=== PATIENT | female | born 1950 | race Caucasian/White ===

== ENCOUNTER 2024-05-05 13:18 | Inpatient (IN) | payer OTHER, SELFPAY ==
[2024-05-04 21:59] VITALS: BP 134/100
[2024-05-04 22:30] LABS: % Basophils 0.9 % (0-2); % Eosinophils 1.8 % (0-6); % Immature Granulocytes 0.3 % (0-0.5); % Lymphocytes 32.6 % (20.5-51.1); % Monocytes 7.1 % (1.7-9.3); % Neutrophils 57.3 % (42.2-75.2); Absolute Basophils 0.1 10^3/uL (0-0.2); Absolute Eosinophils 0.2 10^3/uL (0-0.7); Absolute Lymphocytes 3.2 10^3/uL (1.2-3.4); Absolute Monocytes 0.7 10^3/uL (0.1-0.6); Absolute Neutrophils 5.7 10^3/uL (1.4-6.5); Hematocrit 40.5 % (37.0-47.0); Hemoglobin 13.2 g/dL (12.0-16.0); Mean Corp Hgb Conc. 32.6 g/dL (33.0-37.0); Mean Corpuscular Hgb 28.6 pg (27.0-31.0); Mean Corpuscular Volume 87.9 fL (81.0-99.0); Mean Platelet Volume 9.8 fL (7.4-10.4); Nucleated Red Blood Cells % 0 %; Platelet Count 283 10^3/uL (130-400); Red Blood Cell Count 4.61 10^6/uL (4.20-5.40); Red Cell Dist. Width 13.1 % (11.5-14.5); White Blood Cell Count 9.9 10^3/uL (4.8-10.8)
[2024-05-04 22:30] LABS: Glucose - Point of Care 111 mg/dl (70-99)
[2024-05-04 22:32] VITALS: BP 180/82
[2024-05-04 22:43] LABS: INR 0.96; PT 13.1 Sec (11.4-14.6)
[2024-05-04 22:44] LABS: APTT 29.1 Sec (23.4-35.0)
[2024-05-04 22:45] LABS: ALT (SGPT) 28 U/L (0-35); AST (SGOT) 25 U/L (14-36); Albumin 4.5 g/dl (3.5-5.0); Alkaline Phosphatase 113 U/L (38-126); Blood Urea Nitrogen 16 mg/dl (7-17); Calcium 9.6 mg/dl (8.4-10.2); Carbon Dioxide 25 mmol/L (22-30); Chloride 105 mmol/L (98-107); Glucose 120 mg/dl (70-99); Sodium 139 mmol/L (135-145); Total Bilirubin 0.7 mg/dl (0.2-1.3); Total Protein 6.7 g/dl (6.3-8.2); eGFR 53.72
[2024-05-04 23:00] VITALS: BP 179/71
--- NOTE | 2024-05-04 23:01 | ED.CVA ---
History of Present Illness
General
Chief Complaint: CVA/TIA Symptoms
Time Seen by Provider: 05/04/24 22:17
Onset of Stroke Symptoms
Onset of symptoms known: Yes
Date of onset of symptoms: 05/04/24
Time of onset of symptoms: 21:30
History of Present Illness
History of Present Illness:
73-year-old female with history of hypertension and hyperlipidemia presents to the emergency department for evaluation of left arm tingling and weakness beginning at 2130. She states she stood up from the couch and abruptly felt numbness to the
left arm. She attempted to drink water i and her son states that she was unable to keep it in her mouth. She also felt clumsy with the arm as if she would drop the glass. Has never had similar symptoms. At this time the paresthesias remain, she
also reports paresthesias to the entire face, nonfocal. No reported speech difficulty, vision changes, chest pain, or shortness of breath. She did take 2 full dose aspirins prior to arrival in the ER tonight
Review of Systems
Review of Systems
Allergies reviewed?: Yes
All Other Systems: ROS reviewed and negative except as documented in HPI and ROS
Phy Exam
Physical Exam
Physical Exam:
GEN: Well appearing, NAD, WDWN
HEENT: Oral mucosa moist, no scleral icterus, no nasal congestion
Cardiac: Mildly tachycardic, regular
Lung: No respiratory distress, no tachypnea
MSK: No gross deformity or injuries
Skin: Good color, no pallor or jaundice, no rashes
Neuro: AO x3; CN II-XII grossly intact. BUE strength 5/5 in all venegas, sensation intact and symmetric. BLE strength 5/5 in all venegas, sensation intact and symmetric. Mild ataxia to the left upper extremity, otherwise no limb ataxia to the right
upper or bilateral lower extremities. Normal visual venegas bilaterally by confrontation
Psych: Calm, cooperative
Scores
NIH Stroke Score
Level of Consciousness: 0 - Alert
LOC Questions: 0-Answers both correctly
LOC Commands: 0-Performs both correctly
Best Horizontal Gaze: 0-Normal
Visual Venegas: 0=Normal, no visual loss
Facial Palsy: 1=Minor paralysis
Motor - Right Arm: 0=No drift 10 seconds
Motor - Left Arm: 0=No drift 10 seconds
Motor - Right Le-No drift 5 seconds
Motor - Left Le-No drift 5 seconds
Limb Ataxia: 1-Present in one limb
Sensation: 0-Normal
Best Language: 0-No aphasia
Dysarthria: 0-Normal
Extinction and Inattention: 0-No abnormality
Total Score:: 2
Course
Orders/Labs/Results
Orders:
Orders
05/04/24 22:18
Electrocardiogram (*1) Urgent
Reason for Study: Fatigue / Weakness
EKG- Treatment ONCE
05/04/24 22:23
Complete Blood Count/With Diff Urgent
Comprehensive Metabolic Panel Urgent
PTT Urgent
Prothrombin Time Urgent
05/04/24 22:31
CT HEAD STROKE ALERT W/o Cont Urgent
Comment:
Reason For Exam: stroke
CT HEAD/NECK ANG STROKE ALERT Urgent
Comment:
Reason For Exam: stroke
05/04/24 23:05
Clopidogrel Bisulfate [Plavix] 300 mg PO NOW STA
05/04/24 23:50
Admit/Transfer Patient As Directed
Co-Sign Provider:
Level of Care: Observation services
Assign to:: Telemetry
Physician / Group: Josemanuel Osman
Diagnosis: CVA/TIA
Reason for Telemetry: CVA/TIA
Date to Stop Telemetry: 05/07/24
Time to Stop Telemetry: 11:00
05/04/24 23:51
Code Status As Directed
Resuscitation Status: Full Code
PRN Pain Medication Management As Directed
May give lesser potent ordered pain med per pt: Yes
preference::
Protocol:: Medication orders for pain may be administered in a
manner that supports deferring to patient preference
when the pt is:
- Requesting an ordered lesser potent pain medication.
Least to most potent pain medications are defined
as: acetaminophen < NSAID < tramadol < opioids
(morphine, oxycodone, hydromorphone).
- Requesting a lesser dose of the same medication IF
ORDERED.
- Requesting a less intrusive route of administration
if both routes are prescribed by the provider (PO <
IV).
05/07/24 11:00
DC Protocol for Telemetry ONCE
Abnormal Lab Results
05/04/24 05/04/24
22:23 22:28
MCHC 32.6 L g/dL
(33.0-37.0)
Absolute Monos (auto) 0.7 H 10^3/uL
(0.1-0.6)
Creatinine 1.1 H mg/dL
(0.6-1.0)
Glucose 120 H mg/dl
(70-99)
POC Glucose 111 H mg/dl
(70-99)
05/04/24 22:23
05/04/24 22:23
Vital Signs
Initial and Last Documented VS:
Initial Vital Signs
Temp Pulse Resp BP Pulse Ox
98.2 F 116 20 134/100 98
05/04/24 21:59 05/04/24 21:59 05/04/24 21:59 05/04/24 21:59 05/04/24 21:59
Last Documented Vital Signs
Temp Pulse Resp BP Pulse Ox
98.2 F 100 22 178/65 96
05/04/24 21:59 05/04/24 23:45 05/04/24 23:45 05/04/24 23:32 05/04/24 23:45
MDM/Problems Addressed
MDM/Problems Addressed:
Patient says shortly after arrival in the emergency department and stroke alert was called. Initial NIH of 2 for mild left nasolabial fold droop and L limb ataxia, no sensory level deficits, no pronator drift, no dysarthria or aphasia. Discussed
risk and benefits of thrombolytic therapy with the patient and her son, at this time there is no indication for thrombolytic therapy given low NIH and nondisabling exam. Case was then discussed by telephone with neurology who agree with assessment
and recommend dual antiplatelet load; will give Plavix here as the patient administered a supratherapeutic dose of aspirin at home. Per vision radiology read CT of the head and CT angiogram of the head and neck were grossly unremarkable. Will
admit to the hospitalist service
*Critical Care Note
Total Time (30-74mins, 75-104mins- exclusive of procedures): 45 minutes
comment:
Critical care time: 45 minutes
Critical care time was exclusive of: Separately billable procedures, treating other patients, and teaching time
Critical care was necessary to treat or prevent imminent or life-threatening deterioration of the following conditions: Acute stroke
Critical care time spent personally by me on the following activities:
[x] Review of old charts
[x] Obtaining history from patient or surrogate
[x] Ordering and review of the laboratory studies
[x] Ordering and review of radiographic studies
[x] Ordering and performing treatments and interventions
[x] Patient patient's response to treatment
[x] Development of treatment plan with patient or surrogate
ED Attending Note
-
Portions of this chart may have been created with voice recognition software.� Occasional wrong word or��sound alike� substitutions may have occurred due to the inherent limitations of voice recognition software.
Discharge Plan
Departure
Patient Disposition: Admit
Date of Disposition: 05/04/24
Time of Disposition: 23:08
Admit to: Med/Surg
Presentation/result/management discussed w/ accepting MD/DO: Hospitalist
Discharge Problem:
Stroke
Prescriptions:
No Action
atorvastatin 10 mg Tablet
10 mg PO DAILY
losartan 100 mg Tablet
100 mg PO DAILY
Interventions
Interventions:
ED- Pulmonary Assessment Last Done: 05/04/24 22:30
ED- Neurological Assessment Last Done: 05/04/24 22:30
ED- Cardiac Assessment Last Done: 05/04/24 22:30
Discharge Date and Time
Print Language: FAROESE
--- NOTE | 2024-05-04 23:16 | HPS.HSE ---
Addendum entered and electronically signed by Josemanuel Osman DO 05/05/24 01:04:
Patient seen and examined independently. Agree with findings and plan as set forth by RUPESH Perdomo.
Patient is a 73y F with PMH significant for hypertension who presents to ED complaining of L arm tingling, facial tingling and weakness. Patient states that symptoms started around 9:30 this evening. She reached for a water bottle and was
unable to grasp it. She attempted to drink and the water spilled down her face. Patient denies any headache, vision changes, etc. She denies any prior history of similar symptoms.
In the ED, patient was appreciated to have some LUE ataxia and weakness that has continued to improve since arrival.
Ass:
CVA / TIA
Benign Hypertension
Plan:
Observe overnight for further evaluation and treatment.
DAPT for now.
MRI in AM.
Neuro evaluation in the AM.
Follow for neuro changes.
PT / OT / Speech evaluations.
Check lipids, A1C, etc.
Continue usual losartan for now with holding parameters.
Original Note:
Family Physician
-
Family Physician: Ricky Potter
Chief Complaint
-
CVA/TIA symptoms
History of Present Illness
Patient is a 73-year-old female with past medical history significant for hypertension and hyperlipidemia who presented to [facility] ED for evaluation of left arm tingling and weakness that started around 2129. Patient reports she stood up
from sitting and abruptly felt numbness in her left arm. Patient states after standing and feeling the numbness she attempted to take a drink of water from a bottle and feels her dexterity was off, she had a hard time holding bottle and when she
took a sip of water it began to run out of her mouth. She denies any symptoms like this before. She denies any vision changes, weakness in leg, difficulty talking or dizziness. Patient denies any recent sickness, fevers, chills, chest pain,
shortness of breath, cough, nausea, vomiting, constipation, diarrhea or urinary symptoms.
Medical History
Past Medical History
Past Medical History: Reports Other
Additional Past Medical History:
benign hypertension
hyperlipidemia
Past Surgical History: Reports Other
Additional Past Surgical History:
hysterectomy (1975)
Social History
Tobacco: Former Smoker (quit years ago)
Alcohol: None
Drug: None
Living: With Family
Employment: Employed
Family History
Family History: Not pertinent
Allergies / Home Medications
Allergies reflects when Allergies were last updated in [facility].
Home Medications with original date entered in [facility]
Allergy/Medication List:
Allergies
Allergy/AdvReac Type Severity Reaction Status Date / Time
No Known Allergies Allergy Unverified 05/04/24 22:00
Home Medications
atorvastatin 10 mg tablet 10 mg PO DAILY 05/04/24
losartan 100 mg tablet 100 mg PO DAILY 05/04/24
Review of Systems
-
History Source: Patient
Constitutional: Reports No Symptoms
EENT: Reports No Symptoms
Respiratory: Reports No Symptoms
Cardiac: Reports No Symptoms
Abdomen/GI: Reports No Symptoms
: Reports No Symptoms
Musculoskeletal: Reports No Symptoms
Skin: Reports No Symptoms
Neurological: Reports Weakness (left arm ) and Numbness (left arm )
Endocrine: Reports No Symptoms
Hematologic/Lymphatic: Reports No Symptoms
Psych: Reports No Symptoms
Physical Exam
Vital Signs
Vital Signs
Temp Pulse Resp BP Pulse Ox
98.2 F 104 22 179/71 97
05/04/24 21:59 05/04/24 23:00 05/04/24 23:00 05/04/24 23:00 05/04/24 23:00
Physical Exam
General: Well Developed, Well Nourished, No Apparent Distress, Comfortable, Conversant and Morbidly Obese
HEENT: NormoCephalic, Moist mucous membranes, Atraumatic, [place] Conjunctivae, Nose Appears Normal and Ears Appear Normal
Respiratory: Clear and Non Labored Respirations
Cardiac: S1/S2 and Regular Rhythm; No Murmur, Rub or Gallop
Breast: Deferred by me
GI: Soft, Non Tender, Non Distended and Normal Bowel Sounds; No Organomegaly
Rectal: Deferred by Provider
Genito-urinary: Deferred by me
Musculoskeletal: No Clubbing, No Cyanosis and No Edema
Skin: Warm and IV/Catheter Site; No Rash
Neuro: Awake, Alert, AO x 3, Nonfocal/grossly intact and No Sensory Deficits; No Slurred Speech or Facial Droop
Psych: Calm and Intact Judgment/Insight
Laboratory Results
-
05/04/24 22:
05/04/24:
Laboratory Results
PT 13.1 Sec (11.4-14.6) 05/04/24:
INR 0.96 05/04/24:
APTT 29.1 Sec (23.4-35.0) 05/04/24:
Total Bilirubin 0.7 mg/dl (0.2-1.3) 05/04/24 22:
AST 25 U/L (14-36) 05/04/24:
ALT 28 U/L (0-35) 05/04/24 22:23
Alkaline Phosphatase 113 U/L (38-126) 05/04/24 22:23
Data Reviewed
-
CT Scan: Report Reviewed by me (Head CT: No acute intracranial abnormality)
Medical Tests (Nuc Med, Echo, EKG etc): Report Reviewed by me (EKG: NORMAL SINUS RHYTHM POSSIBLE LEFT ATRIAL ENLARGEMENT NONSPECIFIC ST AND T WAVE ABNORMALITY)
Lab Data: Labs Reviewed by me
Impression/Plan
-
IMPRESSION/PLAN:
#TIA/CVA symptoms
left arm numbness and weakness abrupt onset at approximately 2130
EKG: NORMAL SINUS RHYTHM
POSSIBLE LEFT ATRIAL ENLARGEMENT
NONSPECIFIC ST AND T WAVE ABNORMALITY
Head CT: No acute intracranial abnormality
- Admit to telemetry
- Consult Neurology
- DAPT
- start Plavix and aspirin
#benign hypertension
- continue losartan
#hyperlipidemia
- continue atorvastatin
Code status: full code
DVT prophylaxis: SCDs
[2024-05-04 23:31] VITALS: BP 189/70
[2024-05-04 23:32] VITALS: BP 178/65
[2024-05-04] MEDS: PLAVIX 300 MG PO (23:36)
[2024-05-05] VITALS (10 sets, daily range): BP systolic 141–200; BP diastolic 63–112; BMI 40.5; BMI 39.5
--- NOTE | 2024-05-05 04:00 | PTCARENOTE ---
pt arrived from ED via stretcher and walked independently to bed. pt is AAOx3, VSS except BP was 181/112 upon arrival. CLINICAL PRACTICE CONSULTANT made aware, no new orders at this time. will recheck. call garcia within reach, plan of care ongoing.
--- NOTE | 2024-05-05 05:30 | PTCARENOTE ---
pt with persistent elevated BP- manual 200/98, HR in 80s. pt also with new complaints of 4/10 frontal headache. HIGH RIGGER made aware- new orders to give 0800 dose of losartan now. prn tylenol given for headache. new orders for EKG as well- showing NSR.
will continue to monitor closely.
[2024-05-05] MEDS: TYLENOL 650 MG PO ×2 (06:04→20:29)
[2024-05-05] MEDS: COZAAR 100 MG PO (06:05)
[2024-05-05] MEDS: LIPITOR 10 MG PO (08:12)
[2024-05-05] MEDS: LOW STRENGTH ASPIRIN 81 MG PO (08:12)
[2024-05-05] MEDS: PLAVIX 75 MG PO (08:12)
--- NOTE | 2024-05-05 08:14 | CON.NEURO ---
Consultation
Order
Date of Consultation: 05/05/24
Requesting Provider: Pooja Gaston CRNP
Reason for Consult: Stroke
Neurology Consultation Note.
HPI: This is a 73-year-old right-handed woman who presented to [facility] on 05/04/2024 with transient dysarthria in the right hand including sensation.
According to the patient while watching a movie in the evening of around 21:30 she experienced sudden difficulty grasping a water bottle with her left hand and bringing it to her mouth. Her son noted slurred speech and left facial weakness
that lasted for unspecified time. The patient denies any prior similar episodes. She reports full sensation in her hand but experienced coordination issues, specifically an inability to release objects from her optometric technician. The patient's left leg function
remained intact. She denies any recent illness, fever, chest pain, shortness of breath, palpitations.
VS: 134/100-207/99, 116, afebrile
EKG:NSR, QTc Int : 429 ms
PDMP:none
Labs: Glucose�120, creatinine�1.1, normal WBCs, platelets
CT head wo contrast�unremarkable
CTA head/neck�no hemodynamically significant stenosis.
PMH: Stage II cervical cancer, HTN, DLP, BMI 39
PSH:partial hysterectomy at age of 22, bilateral oophorectomy; Warren teeth removal
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
FH: Father at 30 in MVA, mother from COVID
All:NKDA
ROS: Constitutional: Negative. Negative for chills, fever and unexpected weight change.
HENT: Negative for ear pain, hearing loss, tinnitus and trouble swallowing.
Eyes: Negative. Negative for photophobia, pain and visual disturbance.
Respiratory: Negative for cough, choking and shortness of breath.
Cardiovascular: Negative for chest pain, palpitations and leg swelling.
Gastrointestinal: Negative for abdominal pain and vomiting.
Endocrine: Negative. Negative for cold intolerance.
Genitourinary: Negative for dysuria, flank pain and urgency.
Musculoskeletal: Positive for neck pain
Skin: Negative for rash.
Allergic/Immunologic: Negative. Negative for immunocompromised state.
Neurological: Positive for transient dysarthria and left hand coordination
Psychiatric/Behavioral: Negative for behavioral problems, confusion and hallucinations.
General: Well developed. In no acute distress.
Cardio: Regular rate and rhythm without murmur. Extremities are without cyanosis or edema.
Neuro:
Mental Status: Alert, oriented to person, place, and date. Normal attention and recall. Good fund of knowledge. Follows complex requests across the midline. Comprehension, naming, and repetition intact. Immediate and delayed recall 3/3.
Cranial Nerves: Pupils are equally round and reactive to light. EOMs full. Visual venegas full to confrontation. No ptosis. No nystagmus. V1-V3 intact to light touch and pinprick bilaterally, symmetric. Face symmetric. Normal hearing AU. The
palate elevated well. SCMs and traps 5/5. Tongue midline. No dysarthria.
Motor: Normal bulk and tone. No pronator or arm drift. Strength 5/5 throughout. No clonus.
Reflexes: 3+ throughout the upper extremities and 3+knees. Plantar responses flexor bilaterally. Amee's is negative bilaterally
Sensory: Normal vibration at the toes
Coordination: No dysmetria or tremor.
Gait: deferred
Assessment and Plan:
I. Acute right MCA territory stroke. Likely etiology�embolic
II. Hypertensive emergency
III. Cervical DJD
-Continue Telemetry monitoring
-Aspiration precautions
-Cautious lowering of BP by approximately 15 % during the first 24 hours is SBP >220 mmHg or diastolic blood pressure >120 mmHg
-Restart antihypertensive medications during if BP>140/90 mmHg who are neurologically stable in 24 to 48 hours after stroke onset
-TTE
-Start ASA 81 mg QD indefinitely
-Plavix 75 mg QD for 21 days.
-Lipitor 40 mg QHS.
-Please check HbA1C, LDL.
-Lifestyle modification, such as smoking cessation, exercise, and diet
-PT.
-DVT prophylaxis.
I personally reviewed all radiology and labs along with past medical records pertinent to current medical problems. Total time spent in patient care is 60 minutes.
Thank you for allowing us to participate in the care of this patient. We will continue to follow. Please do not hesitate to contact us with any questions or concerns.
Subjective/Objective
Subjective Data
Date of Service: May 05, 2024
Objective Data
Vital Signs
Temp Pulse Resp BP Pulse Ox
36.8 C 83 20 200/98 97
05/05/24 03:30 05/05/24 06:05 05/05/24 03:30 05/05/24 06:17 05/05/24 03:30
Lab Results
05/04/24 22:23
05/04/24 22:23
PT 13.1 Sec (11.4-14.6) 05/04/24 22:23
INR 0.96 05/04/24 22:23
APTT 29.1 Sec (23.4-35.0) 05/04/24 22:
Sodium 139 mmol/L (135-145) 05/04/24 22:
Potassium 4.0 mmol/L (3.5-5.1) 05/04/24 22:
BUN 16 mg/dl (7-17) 05/04/24 22:
Glucose 120 mg/dl (70-99) H 05/04/24 22:
Calcium 9.6 mg/dl (8.4-10.2) 05/04/24 22:23
Patient Allergies
No Known Allergies Allergy (Unverified 05/04/24 22:00)
Medications
-
Active Medications
Generic Name Dose Route Start Last Admin
Trade Name Freq PRN Reason Stop Dose Admin
Acetaminophen 650 mg 05/05/24 01:09 05/05/24 06:04
Acetaminophen 325 Mg Tablet PO 06/02/24 01:08 650 mg
Q4HPRN PRN Administration
[place], mild pain, or temp >100.4F
Aspirin 81 mg 05/05/24 08:00
Aspirin 81 Mg Chewable Tablet PO 06/02/24 07:59
DAILY SHELLEY
Atorvastatin Calcium 10 mg 05/05/24 08:00
Atorvastatin (Lipitor) 10 Mg Tablet PO 06/02/24 07:59
DAILY SHELLEY
Clopidogrel Bisulfate 75 mg 05/05/24 08:00
Clopidogrel 75 Mg Tablet PO 06/02/24 07:59
DAILY SHELLEY
Losartan Potassium 100 mg 05/05/24 08:00 05/05/24 06:05
Losartan 100 Mg Tablet PO 06/02/24 07:59 100 mg
DAILY SHELLEY Administration
Home Medications
�Medication �Instructions �Recorded
atorvastatin 10 mg tablet 10 mg PO DAILY 05/04/24
losartan 100 mg tablet 100 mg PO DAILY 05/04/24
Vital Signs and Labs
-
Vital Signs and Labs:
Vital Signs
Temp Pulse Resp BP Pulse Ox
36.8 C 83 20 200/98 97
05/05/24 03:30 05/05/24 06:05 05/05/24 03:30 05/05/24 06:17 05/05/24 03:30
Lab Results
05/04/24 22:23
05/04/24 22:23
PT 13.1 Sec (11.4-14.6) 05/04/24 22:23
INR 0.96 05/04/24 22:23
APTT 29.1 Sec (23.4-35.0) 05/04/24 22:23
Sodium 139 mmol/L (135-145) 05/04/24 22:23
Potassium 4.0 mmol/L (3.5-5.1) 05/04/24 22:23
BUN 16 mg/dl (7-17) 05/04/24 22:23
Glucose 120 mg/dl (70-99) H 05/04/24 22:23
Calcium 9.6 mg/dl (8.4-10.2) 05/04/24 22:23
Medications
-
Medications:
Generic Name Dose Route Start Last Admin
Trade Name Freq PRN Reason Stop Dose Admin
Acetaminophen 650 mg 05/05/24 01:09 05/05/24 06:04
Acetaminophen 325 Mg Tablet PO 06/02/24 01:08 650 mg
Q4HPRN PRN Administration
[place], mild pain, or temp >100.4F
Aspirin 81 mg 05/05/24 08:00 05/05/24 08:12
Aspirin 81 Mg Chewable Tablet PO 06/02/24 07:59 81 mg
DAILY SHELLEY Administration
Atorvastatin Calcium 10 mg 05/05/24 08:00 05/05/24 08:12
Atorvastatin (Lipitor) 10 Mg Tablet PO 06/02/24 07:59 10 mg
DAILY SHELLEY Administration
Clopidogrel Bisulfate 75 mg 05/05/24 08:00 05/05/24 08:12
Clopidogrel 75 Mg Tablet PO 06/02/24 07:59 75 mg
DAILY SHELLEY Administration
Losartan Potassium 100 mg 05/05/24 08:00 05/05/24 06:05
Losartan 100 Mg Tablet PO 06/02/24 07:59 100 mg
DAILY SHELLEY Administration
Home Medications
-
Home Medications
atorvastatin 10 mg tablet 10 mg PO DAILY 05/04/24
losartan 100 mg tablet 100 mg PO DAILY 05/04/24
[2024-05-05 08:33] LABS: HDL Cholesterol 55 mg/dl; LDL Cholesterol, Calculated 80 mg/dl; Total Cholesterol 150 mg/dl (50-199); Triglyceride 75 mg/dl (10-149); Very Low Density Lipoprotein 15 mg/dl (0-30)
[2024-05-05 09:09] LABS: Glycohemoglobin (HgbA1c) 5.4 % (4.0-5.6)
--- NOTE | 2024-05-05 09:43 | W.PN.HOSP.TC ---
Today's Communication/Plan
-
see bold
Assessment / Plan
Assessment / Plan
Gen: NAD, AAOx3.
Eyes: EOMI, PERRLA, no scleral icterus.
Neck: supple.
CV: RRR, +S1/S2, no m/r/g.
Resp: CTAB, no rales, wheezes, or rhonchi.
Abd: +BS, soft, NT, ND
Skin: No rashes.
Neuro: CN 2-12 intact, non-focal.
Psych: Normal mood and affect.
CT Brain: No acute intracranial pathology
Left arm numbness and weakness:
-abrupt onset at approximately 2130
-concern for TIA/CVA
-increase Lipitor to 40mg
-cont ASA/statin
-c/s neuro
-check MRI brain
-tele reviewed, without afib/flutter
Other problems:
Essential HTN: cont losartan
HLD: cont statin
Morbid obesity due to excess calories
FULL/SCDs
Anticipated Discharge: Within 24 hours
Subjective/Interval History
-
Date of Service: May 05, 2024
No neurological complaints at this time.
Objective Data
-
Labs:
Laboratory Results
05/04/24
22:23
WBC 9.9
Hgb 13.2
Hct 40.5
Plt Count 283
PT 13.1
INR 0.96
APTT 29.1
Sodium 139
Potassium 4.0
Chloride 105
Carbon Dioxide 25
BUN 16
Creatinine 1.1 H
Glucose 120 H
Calcium 9.6
Total Bilirubin 0.7
AST 25
ALT 28
Alkaline Phosphatase 113
Vital Signs:
Vital Signs
Temp Pulse Resp BP Pulse Ox
98 F 77 16 155/64 95
05/05/24 07:05 05/05/24 07:05 05/05/24 07:05 05/05/24 07:05 05/05/24 07:05
I&O
05/04/24 05/05/24 05/06/24
06:59 06:59 06:59
Intake Total 480 / 480
Balance 480 / 480
--- NOTE | 2024-05-05 11:12 | CM ---
Patient seen at bedside
MRI today
PT/OT/ST to eval
IA completed. GARZA form explained & signed. In chart
Lives in an apartment with her son, no steps
PLOF: Independent, no device
Denies DME
Denies insecurities
PCP: Ricky Justin
Pharmacy: [facility]
PLAN: Await PT/OT evals
--- NOTE | 2024-05-05 12:04 | PTOTSP ---
SPEECH THERAPY SWALLOW EVALUATION:
Patient exhibits grossly functional oropharyngeal swallow at this time. No history of dysphagia noted. Head CT negative at this time; MRI pending. Recommend continue Regular texture solids, thin liquids. Medications whole with liquid as best
tolerated. General aspiration precautions. Skilled ST services for swallow therapy are not indicated at this time.
Patient exhibited no overt speech, expressive/receptive language, or cognitive communication impairments during informal assessment. Patient reported they feel to be at baseline level of functioning. MRI pending at this time. Recommend ST to monitor
MRI results; Should MRI demonstrate acute intracranial abnormality, recommend ST to complete full speech/language/cognitive communication evaluation. If MRI negative, speech/language/cognitive communication evaluation is not indicated.
RECOMMEND:
1) Regular texture diet, thin liquids
2) Medications whole with liquid as best tolerated
3) General aspiration precautions
4) Swallow therapy is not indicated at this time; ST to monitor MRI results and complete full speech/language/cognitive communication evaluation if indicated
[2024-05-05] MEDS: AMBIEN 5 MG PO (20:49)
[2024-05-06 03:21] VITALS: BP 159/82
[2024-05-06 07:07] VITALS: BP 156/72
[2024-05-06] MEDS: LIPITOR 40 MG PO (08:03)
[2024-05-06] MEDS: COZAAR 100 MG PO (08:03)
[2024-05-06] MEDS: PLAVIX 75 MG PO (08:03)
[2024-05-06] MEDS: DESENEX/MITRAZOL/ZEASORB 1 APPLIC TOPICAL (08:03)
[2024-05-06] MEDS: LOW STRENGTH ASPIRIN 81 MG PO (08:03)
[2024-05-06 11:52] VITALS: BP 148/80
--- NOTE | 2024-05-06 14:46 | CM ---
Patient seen at bedside with physicians. Patient stated that she is for discharge home today and has no needs at this time. PT/OT no therapy needed. Patient is INP and IMM completed and signed form placed on chart. CM will continue to follow for
discharge planning needs.
Plan; home with no needs anticipated at this time
[2024-05-06 15:14] VITALS: BP 164/75
--- NOTE | 2024-05-06 15:29 | W.PN.HOSP.TC ---
Addendum entered and electronically signed by Elyse Noble MD 05/06/24 17:31:
I saw and evaluated the patient independently. I reviewed the resident�s note and agree with findings and plan as documented by Dr. Restrepo.
GENERAL: well developed, well nourished, female in no apparent distress
HEENT: NC/AT--no O2 requirements
HEART: regular rate and rhythm, +S1, +S2
LUNGS : clear to auscultation bilaterally
ABDOM: soft, nontender, nondistended, + bowel sounds
EXT: no cyanosis, clubbing, or edema
NEUROLOGIC: grossly intact
CVA--positive MRI--cont asa/plavix x 21 days followed by asa alone--apprec neuro--ECHO WNL--OK for d/c--cont increased lipitor and outpt speech therapy for cognitive issues
Essential HTN-- cont losartan
HLD-- cont statin
Morbid obesity due to excess calories
DVT proph
code status--FULL
Original Note:
Today's Communication/Plan
-
Pending Echo result. Stable for D/C today
Assessment / Plan
Assessment / Plan
CVA:
Abrupt onset at approximately 2130, left arm/face paraesthesia, weakness
CT Brain: No acute intracranial pathology
CTA with no significant stenosis
MRI brain: Small acute ischemic infarction in the cortical mccoy matter of the right precentral gyrus and postcentral gyrus of the posterior right frontal lobe and anterior right parietal lobe demonstrating mild restricted diffusion and cytotoxic
edema.
-Lipitor increased to 40mg (from home dose 10mg)
-cont DAPT x21 days, Asp indefinitely afterwards
-Appreciate neuro input
- Tele with no afib/flutter. Await Echo today
Other problems:
Essential HTN: cont losartan
HLD: cont statin
Morbid obesity due to excess calories
FULL/SCDs
Anticipated Discharge: Today
Subjective/Interval History
-
Date of Service: May 06, 2024
Pt feels well, would like to be discharged today
Objective Data
-
Vital Signs:
Vital Signs
Temp Pulse Resp BP Pulse Ox
98.1 F 82 18 164/75 98
05/06/24 15:14 05/06/24 15:14 05/06/24 15:14 05/06/24 15:14 05/06/24 15:14
I&O
05/05/24 05/06/24 05/07/24
06:59 06:59 06:59
Intake Total 480 / 480 480 / 480
Balance 480 / 480 480 / 480
Review of Systems
-
History Source: Patient
Neuro: Denies Dizzy, Headache, Weakness or Numbness
Physical Exam
-
General: Well Developed, Well Nourished, No Apparent Distress and Comfortable; Negative Respiratory Distress
HEENT: Normocephalic, Atraumatic and Moist Mucous Membranes
Respiratory: Clear to Auscultation and Non Labored Respirations; Negative Wheezes, Rales, Rhonchi or Crackles
Cardiac: Regular Rhythm and S1/S2; Negative Murmur, Rub or Calf Tenderness
GI: Soft, Nontender, Nondistended and Normal Bowel Sounds
Skin: Warm and Dry
Neuro: Awake, Alert, Oriented, No Motor Deficits, No Sensory Deficits and Other (no ataxia, no aphasia); Negative Tremors, Slurred Speech or Facial Droop
Psych: Calm
--- NOTE | 2024-05-06 16:12 | PTOTSP ---
SPEECH THERAPY SPEECH/LANGUAGE/COGNITIVE COMMUNICATION EVALUATION:
Patient exhibits mild expressive language, mild receptive language, and mild-moderate cognitive communication impairments 2/2 acute CVA. Deficits are characterized by difficulty with the following areas: visuospatial tasks, executive functioning
tasks, complex mental math tasks, word generation during fluency tasks, abstraction, delayed recall, and processing speed. Patient reported these deficits are BELOW normal level of functioning.
MOCA version 8.1 was administered. Patient achieved a score of 19/30, indicating below normal level of functioning (greater than or equal to 26/30). Subscores as follows: Visuospatial/Executive functionin/5. Namin/3. Attention: 4/6.
Language: 2/3. Abstraction: 0/2. Delayed Recall: 3/5. Orientation: 5/6.
Outpatient Speech Therapy services are recommended upon discharge. 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 Patient in agreement with plan of care.
--- NOTE | 2024-05-07 06:45 | W.DCSUMMARY ---
Addendum entered and electronically signed by Elyse Noble MD 05/07/24 07:18:
Read, reviewed, and agree. See same day progress note for additional details. Time spent coordinating care, DC planning, review of DC plan of care with resident, transition of care, review of records in EMR, med rec, consults, notes, d/w
consultants, nursing, family, and CM = 31 minutes
Original Note:
Discharge Summary
Discharge Data
Date of Admission: 05/05/24
Date of Discharge: 05/06/24
-
Pending Results: No
Hospital Course
Discharging Physician : Idalia Restrepo MD; Elyse Noble MD.
Disposition : Home
Primary care physician :
Principal Discharge diagnosis :
Chronic Discharge diagnosis :
Hospital Course :
HPI:
73y F with history of hypertension who presents to ED complaining of L arm tingling, facial tingling and weakness. Patient states that symptoms started around 9:30 this evening. She reached for a water bottle and was unable to grasp it. She
attempted to drink and the water spilled down her face. Patient denies any headache, vision changes, etc. She denies any prior history of similar symptoms.
In the ED, patient BP 179/71, HR 104, RR 22, with SpO2 and temperature remaining normal. Creatinine was 1.1. She was appreciated to have some LUE ataxia and weakness that continued to improve since arrival. CT head and CTA head/neck showed no
evidence of acute abnormality and patient was started on DAPT and high intensity statin therapy. Brain MRI the next day showed a small acute infarct.
HbA1c 5.4, Triglycerides 75, TChol 150, LDL 80, VLDL 15, HDL 55.
Patients symptoms continued to improve throughout stay and she reported no neurological symptoms at the time of discharge. NIHSS was 0. She was deemed stable for discharged and was discharged to home with recommendations for outpatient speech
therapy based on speech therapy evaluation findings.
Medication changes:
Atorvastatin 10 mg was changed to 40 mg daily. Amlodipine 5 mg daily was added. DAPT was initiated with aspirin 81 mg and clopidogrel 75 mg daily to continue through 05/25/2024, after which aspirin 81 mg alone should be continued daily
indefinitely. She is to continue home losartan 100 mg. No change was made to PRN zolpidem.
Recommendations:
Follow up shortly with your PCP. - Repeat MoCA ( while admitted)
Follow up with Neurology
Follow up with outpatient speech therapy
Important data findings :
Head CT 05/04/2024: No acute intracranial pathology
Head/Neck CTA 05/04/2024: No acute vascular pathology identified. No evidence of M1 nor M2 occlusion. Less than 50% bilateral proximal internal carotid artery stenosis. Multilevel degenerative disc disease.
Brain MRI 05/05/2024:
1. SMALL ACUTE ISCHEMIC INFARCTION in the CORTICAL [place]AS[place] MATTER of the RIGHT PRECENTRAL GYRUS and POSTCENTRAL GYRUS of the posterior right frontal lobe and anterior right parietal lobe demonstrating mild restricted diffusion and cytotoxic edema.
2. Mild diffuse cerebral and cerebellar volume loss.
3. Severe discogenic degenerative disease at C4/C5 with a large disc-osteophyte complex causing moderate spinal cord compression, moderate central canal stenosis, and severe bilateral neural foraminal narrowing.
Echocardiogram 05/06/2024:
Normal left ventricular chamber size. Normal left ventricular systolic
function. Left ventricular ejection fraction is 55-60% by visual assessment.
Normal regional wall motion. Mild concentric left ventricular hypertrophy.
Normal diastolic function.
Normal right ventricular size and function.
Mitral annular calcification. Mild mitral regurgitation.
Trace tricuspid regurgitation. Estimated pulmonary artery pressure of 40-45
mmHg assuming a right atrial pressure of 3 mmHg.
Normal pericardium without effusion.
The IVC is of normal size and demonstrates normal respiratory variation.
Interatrial septum is intact with no evidence of shunting by color flow
Doppler. No intracardiac mass or thrombus formation seen. No obvious
cardioembolic source, if clinical concern, consider alternative imaging.
Procedure findings :
SPEECH THERAPY SPEECH/LANGUAGE/COGNITIVE COMMUNICATION EVALUATION:
Patient exhibits mild expressive language, mild receptive language, and mild-moderate cognitive communication impairments 2/2 acute CVA. Deficits are characterized by difficulty with the following areas: visuospatial tasks, executive functioning
tasks, complex mental math tasks, word generation during fluency tasks, abstraction, delayed recall, and processing speed. Patient reported these deficits are BELOW normal level of functioning.
MOCA version 8.1 was administered. Patient achieved a score of /30, indicating below normal level of functioning (greater than or equal to 26/30). Subscores as follows: Visuospatial/Executive functionin/5. Namin/3. Attention: 06/16.
Language: 04/15. Abstraction: 0. Delayed Recall: 05/15. Orientation: 07/16.
Outpatient Speech Therapy services are recommended upon discharge
Discharge Plan
-
Patient Disposition: Home (Routine Discharge)
Discharge Diagnosis/Procedures: CVA
Condition: Good
Diet: Low Cholesterol and Low Sodium
Activity: No restrictions
Driving Restrictions: As prior to admission
Bathing Restrictions: None
Other Services: ST
Referrals:
Mike Rahman MD [Active] - in two to four weeks
Ricky Potter MD [Family Provider] - in less than 1 week
Additional Discharge Medication Instructions: Take Amlodipine 5mg daily, and Continue taking Losartan 100mg daily. One of the two should be taken in the morning, while the other should be taken at night.
Follow up shortly with your PCP. - Repeat MoCA ( while admitted)
Follow up with Neurology
Follow up with outpatient speech therapy
Prescriptions:
New
atorvastatin 40 mg Tablet
40 mg PO DAILY Qty: 30 0RF
aspirin 81 mg Tablet,Chewable
81 mg PO DAILY Qty: 0 0RF
clopidogrel 75 mg Tablet
75 mg PO DAILY 19 Days Qty: 19 0RF
Rx Instructions:
Last dose on 05/25/2024
amlodipine [Norvasc] 5 mg tablet
5 mg PO DAILY Qty: 30 0RF
Continued
losartan 100 mg Tablet
100 mg PO DAILY
zolpidem [Ambien] 5 mg Tablet
5 mg PO HS PRN (Reason: insomnia)
Discontinued
atorvastatin 10 mg Tablet
10 mg PO DAILY
Discharge Orders:
Discharge Patient (As Directed); Ordered 05/06/24
Ordered By: Idalia Restrepo
Discharge Date and Time
Discharge Date/Time: 05/06/24 18:42
Print Language: [place]
== END 2024-05-06 18:42 | disposition home or self-care (01) | DRG 64 ==
LOC: 4 EAST ACU 13:18
PROVIDERS: Nurse Practitioner Family; Physician Assistant; Student in an Organized Health Care Education/Training Program; ADMITTING PHYSICIAN Hospitalist; ATTENDING PHYSICIAN Internal Medicine; CONSULT PHYSICIAN Psychiatry & Neurology Neurology; EMERGENCY PHYSICIAN Emergency Medicine; FAMILY PHYSICIAN Family Medicine
DX: I63.411 Cerebral infarction due to embolism of right middle cerebral artery (principal); G93.6 Cerebral edema; I16.1 Hypertensive emergency; Z68.41 Body mass index [BMI] 40.0-44.9, adult; E78.5 Hyperlipidemia, unspecified; I10 Essential (primary) hypertension; R47.1 Dysarthria and anarthria; M47.812 Spondylosis without myelopathy or radiculopathy, cervical region; R29.700 NIHSS score 0; R29.810 Facial weakness; R47.81 Slurred speech; E66.01 Morbid (severe) obesity due to excess calories; Z87.891 Personal history of nicotine dependence; Z79.899 Other long term (current) drug therapy; Z85.41 Personal history of malignant neoplasm of cervix uteri; Z90.711 Acquired absence of uterus with remaining cervical stump
CPT/HCPCS: 70450; 70496; 70498; 70551; 80053; 80061; 82962; 83036; 85025; 85610; 85730; 92523; 92610; 93005; 93306; 99291; Q9967

== ENCOUNTER 2024-05-22 19:35 | Emergency (ER) | payer OTHER, SELFPAY ==
[2024-05-22] VITALS (7 sets, daily range): BP systolic 149–232; BP diastolic 63–98
[2024-05-22 20:16] LABS: % Basophils 1.1 % (0-2); % Eosinophils 1.4 % (0-6); % Immature Granulocytes 0.2 % (0-0.5); % Lymphocytes 23.4 % (20.5-51.1); % Monocytes 5.6 % (1.7-9.3); % Neutrophils 68.3 % (42.2-75.2); Absolute Basophils 0.1 10^3/uL (0-0.2); Absolute Eosinophils 0.2 10^3/uL (0-0.7); Absolute Lymphocytes 2.9 10^3/uL (1.2-3.4); Absolute Monocytes 0.7 10^3/uL (0.1-0.6); Absolute Neutrophils 8.3 10^3/uL (1.4-6.5); Hematocrit 42.7 % (37.0-47.0); Hemoglobin 14.3 g/dL (12.0-16.0); Mean Corp Hgb Conc. 33.5 g/dL (33.0-37.0); Mean Corpuscular Hgb 28.8 pg (27.0-31.0); Mean Corpuscular Volume 85.9 fL (81.0-99.0); Mean Platelet Volume 10.5 fL (7.4-10.4); Nucleated Red Blood Cells % 0 %; Platelet Count 343 10^3/uL (130-400); Red Blood Cell Count 4.97 10^6/uL (4.20-5.40); Red Cell Dist. Width 13.1 % (11.5-14.5); White Blood Cell Count 12.2 10^3/uL (4.8-10.8)
[2024-05-22 20:30] LABS: ALT (SGPT) 27 U/L (0-35); AST (SGOT) 24 U/L (14-36); Albumin 4.7 g/dl (3.5-5.0); Alkaline Phosphatase 114 U/L (38-126); Blood Urea Nitrogen 13 mg/dl (7-17); Calcium 10.1 mg/dl (8.4-10.2); Carbon Dioxide 28 mmol/L (22-30); Chloride 103 mmol/L (98-107); Glucose 113 mg/dl (70-99); Sodium 139 mmol/L (135-145); Total Bilirubin 0.8 mg/dl (0.2-1.3); Total Protein 7.6 g/dl (6.3-8.2); eGFR > 60.00
--- NOTE | 2024-05-22 22:22 | ED.CVA ---
History of Present Illness
General
Chief Complaint: CVA/TIA Symptoms
Source: patient and family
Exam Limitations: none
Time Seen by Provider: 05/22/24 19:49
Onset of Stroke Symptoms
Onset of symptoms known: Yes
Date of onset of symptoms: 05/22/24
History of Present Illness
History of Present Illness:
This is 73-year-old female presents with tingling over her head and face and a generalized feeling of weakness. She denies any focal weakness. She has been checking her blood pressure at home and notes that it has been on the higher end. At times
it has gone above 200. She is on Plavix. She is also on amlodipine and losartan. She has been following with her doctor. She denies chest pain or shortness of breath. She denies any focal numbness or speech changes. No vision changes. Son
states that the patient has been getting a little bit anxious about her blood pressure and measuring it multiple times at home.
Phy Exam
Physical Exam
Physical Exam:
CONSTITUTIONAL Patient alert and oriented to person, place and time. Well-appearing. Vital signs reviewed.
HEAD atraumatic, normocephalic.
EYES eyelids normal to inspection, Extraocular muscles intact, Conjunctiva normal, Sclera normal.
NECK normal range of motion, Trachea midline, no jugular venous distention.
RESPIRATORY CHEST No respiratory distress noted, Chest expansion equal, Bilateral breath sounds clear.
CARDIOVASCULAR regular rate and rhythm, Heart sounds normal.
ABDOMEN abdomen nontender, Bowel sounds normal. No distention.
BACK normal inspection, no obvious deformities
UPPER EXTREMITY range of motion normal, Motor strength normal, no cyanosis, no edema.
LOWER EXTREMITY range of motion normal, Motor strength normal, no cyanosis, no edema.
NEURO Speech normal, No focal motor deficits, [place] coma scale 15, Memory normal, Cranial Nerves intact to screening exam. Normal finger-nose. No pronator drift
SKIN skin warm, dry, and normal in color.
Course
Orders/Labs/Results
Orders:
Orders
05/22/24 19:53
Electrocardiogram (*1) Urgent
Reason for Study: Other
Other Reason for Exam: Possible Stroke
05/22/24 19:54
EKG- Treatment ONCE
05/22/24 20:06
CT Head W/o Iv Contrast Urgent
Comment:
Reason For Exam: uncontrolled HTN, facial tingling,recent CVA
Complete Blood Count/With Diff Urgent
Comprehensive Metabolic Panel Urgent
Abnormal Lab Results
05/22/24
20:06
WBC 12.2 H 10^3/uL
(4.8-10.8)
MPV 10.5 H fL
(7.4-10.4)
Absolute Neuts (auto) 8.3 H 10^3/uL
(1.4-6.5)
Absolute Monos (auto) 0.7 H 10^3/uL
(0.1-0.6)
Glucose 113 H mg/dl
(70-99)
05/22/24 20:06
05/22/24 20:06
Vital Signs
Initial and Last Documented VS:
Initial Vital Signs
Temp Pulse BP Pulse Ox
98.1 F 98 232/98 98
05/22/24 19:42 05/22/24 19:42 05/22/24 19:42 05/22/24 19:42
Last Documented Vital Signs
Temp Pulse Resp BP Pulse Ox
98.1 F 74 16 186/71 94
05/22/24 19:42 05/22/24 21:15 05/22/24 21:15 05/22/24 20:45 05/22/24 21:15
MDM/Problems Addressed
Differential Diagnosis Includes:
CVA, electrolyte disturbance, hypertensive emergency
MDM/Problems Addressed:
Uncontrolled hypertension, hypertensive urgency
*Radiology
Radiology exam reviewed: preliminary read by ED provider (No obvious bleeding) and radiology read reviewed
*Pulse Oximetry
Patient hypoxic: no
*EKG
Interpreted by ED Provider?: Yes
Rate: normal
Rhythm: sinus
[place]: normal axis
QRS Pattern: normal QRS
Ischemia: non-specific ST changes
*Hair Rooting Machine Operator Interpretation
Rate: normal
Interpretation: normal
Rhythm: sinus
*Critical Care Note
Total Time (30-74mins, 75-104mins- exclusive of procedures): Not Applicable
Data Reviewed
Source: patient and family
Prescriptions/Medications Considered But Not Given:
Considered IV antihypertensives but blood pressure improved over time
Patient Management
Escalation/DeEscalation of care consider admission/obs:
Patient appears well. Blood pressure at home sounds like it has been somewhat uncontrolled. Will add metoprolol XL daily. Blood pressure now 150/63 is much better. No unilateral findings. No clinical concern for CVA. Recommend close PCP
follow-up
ED Attending Note
-
Portions of this chart may have been created with voice recognition software.� Occasional wrong word or��sound alike� substitutions may have occurred due to the inherent limitations of voice recognition software.
Discharge Plan
Departure
Patient Disposition: Home (Routine Discharge)
Date of Disposition: 05/22/24
Time of Disposition: 22:25
Patient with high blood pressure during this ER visit?: Yes
Discharge Problem:
Uncontrolled hypertension
Instructions: High blood pressure - ED discharge instructions, BLOOD PRESSURE
Prescriptions:
New
metoprolol succinate [Toprol XL] 25 mg tablet extended release 24 hr
25 mg PO DAILY Qty: 30 0RF
No Action
losartan 100 mg Tablet
100 mg PO DAILY
zolpidem [Ambien] 5 mg Tablet
5 mg PO HS PRN (Reason: insomnia)
atorvastatin 40 mg Tablet
40 mg PO DAILY Qty: 30 0RF
aspirin 81 mg Tablet,Chewable
81 mg PO DAILY Qty: 0 0RF
clopidogrel 75 mg Tablet
75 mg PO DAILY 19 Days Qty: 19 0RF
Rx Instructions:
Last dose on 05/25/2024
amlodipine [Norvasc] 5 mg tablet
5 mg PO DAILY Qty: 30 0RF
Referrals:
Marcello Rizzo DO [Family Provider] -
Activity Restrictions/Additional Instructions:
Your blood pressure was elevated while in the Emergency Department, please have your doctor re-evaluate it in the next 48 hours as untreated hypertension may lead to serious complications.
Please see your doctor in the next 3 to 5 days for follow-up and reevaluation and reassessment of your blood pressure. Return immediately for chest pain, shortness of Breath, vision changes, motor weakness, speech changes or any other concerns.
Interventions
Interventions:
*Neglect/Abuse Screening Last Done: 05/22/24 19:45
ED- Cardiac Assessment Last Done: 05/22/24 19:57
ED- Pulmonary Assessment Last Done: 05/22/24 19:57
Discharge Date and Time
Print Language: OCC[place]
[2024-05-22] MEDS: TOPROL XL 25 MG PO (22:36)
== END 2024-05-22 22:41 | disposition home or self-care (01) ==
LOC: EMR 19:35
PROVIDERS: EMERGENCY PHYSICIAN Emergency Medicine; FAMILY PHYSICIAN Internal Medicine Geriatric Medicine
DX: I10 Essential (primary) hypertension (principal); R20.2 Paresthesia of skin; Z86.73 Personal history of transient ischemic attack (TIA), and cerebral infarction without residual deficits; Z79.02 Long term (current) use of antithrombotics/antiplatelets; Z79.899 Other long term (current) drug therapy
CPT/HCPCS: 99284; 70450; 80053; 85025; 93005

== ENCOUNTER 2024-06-06 06:21 | Outpatient (RCR) | payer OTHER, SELFPAY | END 2024-06-06 23:59 | disposition home or self-care (01) | LOC: RST 06:21 | PROVIDERS: ATTENDING PHYSICIAN Family Medicine | DX: I69.314 Frontal lobe and executive function deficit following cerebral infarction (principal); Z73.6 Limitation of activities due to disability; I69.318 Other symptoms and signs involving cognitive functions following cerebral infarction; M50.321 Other cervical disc degeneration at C4-C5 level; M48.02 Spinal stenosis, cervical region; I69.310 Attention and concentration deficit following cerebral infarction | CPT/HCPCS: 96125; 97129; 97130 ==

== ENCOUNTER 2024-06-27 06:02 | Outpatient (RCR) | payer OTHER, SELFPAY | END 2024-06-27 15:37 | disposition home or self-care (01) | LOC: RST 06:02 | PROVIDERS: ATTENDING PHYSICIAN Family Medicine | DX: I69.314 Frontal lobe and executive function deficit following cerebral infarction (principal); Z73.6 Limitation of activities due to disability; I69.318 Other symptoms and signs involving cognitive functions following cerebral infarction; I69.310 Attention and concentration deficit following cerebral infarction; M50.321 Other cervical disc degeneration at C4-C5 level; M48.02 Spinal stenosis, cervical region | CPT/HCPCS: 97129; 97130 ==

== ENCOUNTER → 2024-08-08 07:21 | Outpatient (REF) | payer OTHER, SELFPAY ==
[2024-08-08 10:01] LABS: TSH Reflex To Free T4 1.84 uIU/ml (0.47-4.68)
[2024-08-08 11:35] LABS: Folate 12.5 ng/ml (2.76-20); Vitamin B12 447 pg/ml (239-931)
== END ==
LOC: HWRAD 07:21
PROVIDERS: ATTENDING PHYSICIAN Nurse Practitioner Adult Health
DX: R22.1 Localized swelling, mass and lump, neck (principal)
CPT/HCPCS: 36415; 76536; 82607; 82746; 84443